=== PATIENT | male | born 2000 | race Caucasian/White ===

== ENCOUNTER 2022-03-24 03:00 | Emergency (ER) | payer MEDICAID, OTHER ==
[2022-03-24 03:44] LABS: ESTIMATED GFR 97 mL/min (>60)
[2022-03-24] MEDS ORDERED: Ketorolac 30 MG/ML SDV IM STA (04:18)
== END 2022-03-24 05:00 | disposition home or self-care (01) ==
LOC: FB.ED 03:00
DX: R07.89 Other chest pain (principal)
CPT/HCPCS: 36415; 71045; 80053; 83880; 84484; 85025; 85379; 93005; 96372; 99285; J1885